=== PATIENT | female | born 1955 | race Two or more races ===

== ENCOUNTER 2018-10-21 12:01 | Emergency (ER) | payer SELFPAY ==
[~2018-10-21] VITALS: Ht 157.5 cm; Wt 81.6 kg
[2018-10-21 12:55] VITALS: BP 132/76
[2018-10-21] MEDS ORDERED: ACETAMINOPHEN 325 MG TAB PO ONE (13:30)
== END 2018-10-21 13:44 | disposition home or self-care (01) ==
LOC: ER 12:01
DX: S01.01XA Laceration without foreign body of scalp, initial encounter (principal); W22.8XXA Striking against or struck by other objects, initial encounter; Y93.89 Activity, other specified; Y99.8 Other external cause status; Y92.89 Other specified places as the place of occurrence of the external cause
CPT/HCPCS: 12001